=== PATIENT | male | born 1945 | race Caucasian/White ===

== ENCOUNTER 2016-11-15 12:14 | Emergency (ER) | payer BC, MEDICARE ==
[2016-11-15 12:27] VITALS: BP 138/82
--- NOTE | 2016-11-15 14:59 | ED ---
Benton Perkins Billy, scribed for Bud Palm MD on 11/15/16 at 1258 . Skin Complaint - HPI Summary HPI Summary: Patient is a 71 year-old male coming to [facility] presenting with a sore on the bottom lip starting approximately 5 weeks ago. He describes dry, cracking skin; pain severity 9/10 when irritated. He was seen at the [facility] 2 weeks ago and treated for Herpes without improvement. Today in the ED, he is concerned for squamous cell carcinoma and wishes to have a lip biopsy done. 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 Patient is lying comfortably on the stretcher. Head: Normacephalic and atraumatic Eyes: PERRLA, EOMI x2. Ears: Right and Left ear canal and TM WNL Nose and mouth: white scaly surface and flat lesion with irregular borders in the lower lip meadurinf 2x1/2 cm. Neck: Supple, no lymphadenopathy, no JVD Lungs: CTA B/L CVS: S1 & S2 present. No murmurs appreciated. Triage Information Reviewed: Yes Vital Signs On Initial Exam: Initial Vitals Temp Pulse Resp BP Pulse Ox 98.4 F 95 16 138/82 97 11/15/16 12:22 11/15/16 12:22 11/15/16 12:22 11/15/16 12:22 11/15/16 12:22 Vital Signs Reviewed: Yes Diagnostics - Vital Signs Vital Signs Temp Pulse Resp BP Pulse Ox 11/15/16 12:22 98.4 F 95 16 138/82 97 - Laboratory Lab Statement: Any lab studies that have been ordered have been reviewed, and results considered in the medical decision making process. Course/Dx - Course Assessment/Plan: Patient is a 71 year-old male coming to [facility] presenting with a sore on the bottom lip starting approximately 5 weeks ago. He describes dry, cracking skin; pain severity 9/10 when irritated. He was seen at the [facility] 2 weeks ago and treated for Herpes without improvement. Today in the ED, he is concerned for squamous cell carcinoma and wishes to have a lip biopsy done. Patient has a lesion in the lower lip. It is dry without any secretions. However, the pt is convinced that he has SCC/BCC and he needs appointment with dermatology. I discussed the case with the office of Dr. Heard who has given him an appointment to see him on Friday11/20/16 at 4 :00pm. The patient is also aware that since he does not have any insurance, the consult will be costly. He understands and agrees. Therefoer he will be discharged to follow up with Dr. Heard. I discussed all the findings and test results with the patient. Patient was instructed to return to the emergency room immediately if any of the symptoms return or worsens. Plan of care was discussed with the patient and understands and agrees. All questions were answered at patient satisfaction. There were no further complaints or concerns. P/E: Lungs: CTA B/L. Good air exchange. No wheezing or crackles heard. CVS: S1 and S2 present. No murmurs appreciated. Patient is alert and oriented x 3. Patient is hemodynamically stable. - Differential Diagnoses - Skin Complaint Differential Diagnoses: Other - Herpes, squamous cell carcinoma, actinic keratosis, basal cell carcinoma, seborrheic keratosis, warts. - Diagnoses Provider Diagnoses: Lip lesion - Physician Notifications Discussed Care Of Patient With: Dr. Heard's (dermatology) office @ 1350: requested for patient to come to the office today for pictures, biopsy will be done on Friday11/20/16. Discharge - Discharge Plan Condition: Stable Disposition: HOME Patient Education Materials: Excision of Skin Lesion (GEN) Referrals: [facility], [Primary Care Provider] - Joslyn Heard [Medical Doctor] - The documentation as recorded by the darleenibBenton hoffmann Billy accurately reflects the service I personally performed and the decisions made by me, Bud Palm MD.
== END 2016-11-15 14:25 | disposition home or self-care (01) ==
LOC: ED 12:14
DX: K13.0 Diseases of lips (principal)
CPT/HCPCS: 99282

== ENCOUNTER 2018-09-28 10:28 | Emergency (ER) | payer MEDICARE ==
[2018-09-28 10:44] VITALS: BP 118/78
--- NOTE | 2018-09-28 11:13 | ED ---
GI/ HPI - HPI Summary HPI Summary: The patient is a 73 y/o M presenting to [facility] with a chief complaint of a small bump on his left scrotum starting two days ago. The constant pain is rated 8/10 in severity. He has tried to use a cleanser, but he is in burning pain after using it. He denies fevers, erythema, and changes in urination. He is worried for infection because he has a hip surgery on 10/07/18. - History of Current Complaint Chief Complaint: EDUrogenitalProblems Time Seen by Provider: 09/28/18 10:55 Stated Complaint: HAS A GROWTH IN THE GROIN AREA Hx Obtained From: Patient Onset/Duration: Started Days Ago - two, Still Present Timing: Lasting Days Severity: Mild Current Severity: Moderate Pain Intensity: 8 Additional Locations for Males: Scrotum - left Pain Characteristics: Burning Associated Signs and Symptoms: Positive: Other: - NEGATIVE: erythema, changes in urination. Negative: Fever - Allergy/Home Medications Allergies/Adverse Reactions: Allergies Allergy/AdvReac Type Severity Reaction Status Date / Time No Known Allergies Allergy Verified 07/15/18 14:15 PMH/Surg Hx/FS Hx/Imm Hx Endocrine/Hematology History: Reports: Hx Thyroid Disease, Other Endocrine/ Hematological Disorders - psoriasis Denies: Hx Diabetes Cardiovascular History: Denies: Hx Hypertension Respiratory History: Reports: Other Respiratory Problems/Disorders - chronic cough, SOB GI History: Reports: Other GI Disorders - constipation History: Denies: Hx Renal Disease Musculoskeletal History: Reports: Hx Arthritis, Hx Back Problems Sensory History: Reports: Hx Cataracts, Hx Contacts or Glasses, Hx Glaucoma Opthamlomology History: Reports: Hx Cataracts, Hx Contacts or Glasses, Hx Glaucoma Neurological History: Reports: Other Neuro Impairments/Disorders - dizziness; being worked up for other "neurological issues" Psychiatric History: Reports: Hx Depression - Cancer History Cancer Type, Location and Year: cataract 2016. inguinal hernia 2007. foromonotomy 2003. colonoscopy 2007. appendectomy 1955 - Surgical History Surgery Procedure, Year, and Place: n/a Infectious Disease History: No Infectious Disease History: Denies: Traveled Outside the [place] in Last 30 Days - Family History Known Family History: Positive: Other - bladder cancer - Social History Alcohol Use: Weekly Alcohol Amount: 10-15 drinks per week Hx Substance Use: No Substance Use Type: Reports: Marijuana Hx Tobacco Use: No Smoking Status (MU): Former Smoker Review of Systems Negative: Fever Positive: other - NEGATIVE: urinary changes Positive: Other - POSITIVE: small painful bump on left scrotum; NEGATIVE: erythema All Other Systems Reviewed And Are Negative: Yes Physical Exam - Summary Physical Exam Summary: Appearance: Well-appearing, Well-nourished, lying in bed comfortable Skin: Warm, dry, no obvious rash Eyes: sclera anicteric, no conjunctival pallor ENT: mucous membranes moist Neck: deferred Respiratory: No signs of respiratory distress Cardiovascular: Appears well perfused, pulses are nml Abdomen: deferred Exam: Small pea-sized sebaceous cyst at the border between the left scrotum and right Musculoskeletal: Moving all 4 extremities without obvious discomfort Neurological: Awake and alert, mentation is normal, speech is fluent and appropriate Psychiatric: affect is normal, does not appear anxious or depressed Triage Information Reviewed: Yes Vital Signs On Initial Exam: Initial Vitals Temp Pulse Resp BP Pulse Ox 98.3 F 65 16 118/78 96 09/28/18 10:40 09/28/18 10:40 09/28/18 10:40 09/28/18 10:40 09/28/18 10:40 Vital Signs Reviewed: Yes Diagnostics - Vital Signs Vital Signs Temp Pulse Resp BP Pulse Ox 09/28/18 10:40 98.3 F 65 16 118/78 96 - Laboratory Lab Statement: Any lab studies that have been ordered have been reviewed, and results considered in the medical decision making process. GIGU Course/Dx - Course Course Of Treatment: The patient is a 73 y/o M with a chief complaint of a small bump on his left scrotum starting a few days ago. He denies fevers, erythema, and changes in urination. Upon exam, there is a small pea-sized sebaceous cyst at the border between the left scrotum and right. The patient is diagnosed with sebaceous cyst. He will be discharged home with follow up with PCP for removal as necessary. He agrees with this plan and understands the need for return to the ED if symptoms worsen. - Diagnoses Provider Diagnoses: Sebaceous cyst Discharge - Sign-Out/Discharge Documenting (check all that apply): Patient Departure - Patient will be discharged home. - Discharge Plan Condition: Good Disposition: HOME Patient Education Materials: Cyst (ED) Referrals: Juan Davey MD [Medical Doctor] - Additional Instructions: Follow up with your primary care provider to have the cyst removed. Return to the emergency department if new symptoms appear or your current symptoms worsen. - Billing Disposition and Condition Condition: GOOD Disposition: Home - Attestation Statements Document Initiated by Jg: Yes Documenting Scribe: Yamel Simms Provider For Whom Jg is Documenting (Include Credential): Dr. Eren Chandler MD Scribe Attestation: IYamel scribed for Dr. Eren Chandler MD on 09/29/18 at 1018. Scribe Documentation Reviewed: Yes Provider Attestation: The documentation as recorded by the Yamel gutiérrez accurately reflects the service I personally performed and the decisions made by me, Dr. Eren Chandler MD Status of Scribe Document: Viewed
== END 2018-09-28 11:31 | disposition home or self-care (01) ==
LOC: ED 10:28
DX: L72.3 Sebaceous cyst (principal); Z87.891 Personal history of nicotine dependence
CPT/HCPCS: 99281

== ENCOUNTER 2019-12-10 00:47 | Emergency (ER) | payer MEDICARE ==
[2019-12-10 00:54] VITALS: BP 144/92
== END 2019-12-10 02:11 | disposition left against medical advice (07) ==
LOC: ED 00:47
DX: R10.84 Generalized abdominal pain (principal); Z53.21 Procedure and treatment not carried out due to patient leaving prior to being seen by health care provider
CPT/HCPCS: 99282